=== PATIENT | male | born 2000 | race Caucasian/White ===

== ENCOUNTER 2022-09-29 | Outpatient (REF) | payer MEDICAID, SELFPAY | END 2022-09-29 00:01 | disposition home or self-care (01) | LOC: HO.LNP | PROVIDERS: Visit Provider Emergency Medicine | DX: A60.9 Anogenital herpesviral infection, unspecified (principal) | CPT/HCPCS: 87255 ==

== ENCOUNTER 2022-12-15 18:44 | Outpatient (REF) | payer MEDICAID, SELFPAY ==
[2022-12-16 02:49] LABS: CT PCR NOT DETECTED (Not Detect.); NG PCR NOT DETECTED (Not Detect.)
== END 2022-12-15 18:45 | disposition home or self-care (01) ==
LOC: HO.HHCLNP 18:44
PROVIDERS: Visit Provider Emergency Medicine
DX: N50.89 Other specified disorders of the male genital organs (principal)
CPT/HCPCS: 0353U

== ENCOUNTER 2023-07-07 13:48 | Outpatient (REF) | payer MEDICAID, SELFPAY ==
[2023-07-07 16:15] LABS: MANUAL DIFF FLAG NO
[2023-07-07 16:21] LABS: Basophils Percent Auto 0.9 % (0-2); Eosinophils Percent Auto 0.7 % (0-4); Hematocrit 43.1 % (42.0-52.0); Hemoglobin 14.8 g/dl (14.0-18.0); Imm Gran Abs Auto 0.01 X10*3/uL (0.00-0.03); Imm Gran Pct Auto 0.2 % (0.0-0.4); Lymphocytes Absolute Auto 1.9 X10*3/uL (1.2-4.9); Lymphocytes Percent Auto 42.3 % (20-40); Mean Corpuscular HGB Conc 34.3 g/dl (31.0-36.0); Mean Corpuscular Hemoglobin 31.5 pg (27.0-33.0); Mean Corpuscular Volume 91.7 fL (80.0-98.0); Mean Platelet Volume 11.4 fL (9.4-12.4); Monocytes Absolute Auto 0.6 X10*3/uL (0.1-1.2); Monocytes Percent Auto 13.6 % (2-11); Neutrophils Absolute Auto 1.9 x10*3/uL (2.0-8.3); Neutrophils Percent Auto 42.3 % (45-73); Platelet Count 232 X10*3/uL (160-400); White Blood Count 4.5 X10*3/uL (4.8-10.8)
[2023-07-07 16:28] LABS: Estimated Average Glucose 108 mg/dL; Hemoglobin A1c % 5.4 % (<6.0)
[2023-07-07 16:51] LABS: Alanine Aminotransferase 31 U/L (0-40); Albumin Level 4.7 g/dL (3.5-5.0); Alkaline Phosphatase 112 U/L (39-117); Anion Gap 14 (12-20); Aspartate Amino Transferase 32 U/L (5-37); Bilirubin Direct 0.5 mg/dL (0.0-0.5); Bilirubin Total 1.7 mg/dL (0.0-1.0); Blood Urea Nitrogen 18 mg/dL (9-16); Carbon Dioxide 25 mmol/L (22-29); Chloride 105 mmol/L (96-108); Cholesterol 146 mg/dL (<200); Estimated Glomerular Filt Rate > 60; Glucose Random 89 mg/dL (60-115); HDL Cholesterol 54 mg/dL (>40); LDL Cholesterol Calculated 71 mg/dL (<100); Potassium 4.1 mmol/L (3.3-5.1); Sodium 140 mmol/L (135-145); Triglycerides 108 mg/dL (<150)
[2023-07-07 17:01] LABS: Free T4 (Free Thyroxine) 0.93 ng/dL (0.71-1.85); Thyroid Stimulating Hormone 1.24 uIU/mL (0.32-4.0); Vitamin D 25-OH Total 57.8 ng/mL (>30)
[2023-07-07 18:42] LABS: CT PCR DETECTED (Not Detect.); NG PCR NOT DETECTED (Not Detect.)
[2023-07-08 04:12] LABS: HBS Num1 1.76 mIU/mL (0-7.99); HBsAGNum1 0.34 S/CO (0.00-0.99); HIV AB/AG Nonreactive (Nonreactive); HIV Num 1 0.05 S/CO (0.00-0.99); Hepatitis B Surface Antigen Negative (Negative); ~HepC Num1 0.08 S/CO (0.00-0.79); ~Hepatitis B Surface Antibody NONREACTIVE (Nonreactive); ~Hepatitis C Antibody Nonreactive (Nonreactive)
[2023-07-11 19:38] LABS: RPR Rapid Plasma Reagin NON-REACTIVE (NON-REACTIVE)
== END 2023-07-07 13:49 | disposition home or self-care (01) ==
LOC: HO.HHCL 13:48
PROVIDERS: Visit Provider Family Medicine
DX: Z00.00 Encounter for general adult medical examination without abnormal findings (principal); J45.20 Mild intermittent asthma, uncomplicated; D70.9 Neutropenia, unspecified; M54.2 Cervicalgia; M54.9 Dorsalgia, unspecified; G89.29 Other chronic pain; A60.00 Herpesviral infection of urogenital system, unspecified; R30.0 Dysuria; N50.811 Right testicular pain; N50.812 Left testicular pain; Z13.31 Encounter for screening for depression
CPT/HCPCS: 0353U; 36415; 80048; 80061; 80076; 82306; 83036; 84439; 84443; 85025; 86592; 86695; 86696; 86706; 86803; 87086; 87340; 87389

== ENCOUNTER 2023-07-07 16:29 | Outpatient (REF) | payer MEDICAID, SELFPAY | END 2023-07-07 16:30 | disposition home or self-care (01) | LOC: HO.HHCLNP 16:29 | PROVIDERS: Visit Provider Family Medicine | DX: R30.0 Dysuria (principal) | CPT/HCPCS: 87086 ==

== ENCOUNTER 2023-07-23 21:53 | Emergency (ER) | payer MEDICAID, SELFPAY ==
[2023-07-23 22:04] VITALS: BP 124/66; BP 146/80; PULSE 59; PULSE 76; RESP 16; TEMP 36.7; O2SAT 98; O2SAT 99; BMI 21.3
--- NOTE | 2023-07-23 22:25 | ED.ALCOHOL ---
HPI - Alcohol General Chief Complaint: ETOH/Substance Use Stated Complaint: in [facility] custody,etoh,vomiting Time Seen by Provider: 07/23/23 22:24 Source: patient Mode of arrival: EMS Limitations: no limitations History of Present Illness ED Provider: Dr. Sundar Padilla HPI narrative: 22-year-old male with no significant past medical history who was brought to emergency department by EMS for evaluation of vomiting while he was incarcerated. The patient does not know why he was incarcerated. He does admit to drinking at least 9 nips of Smirnoff vodka. He denies being ill. He denied headache, neck pain, chest pain, abdominal pain, her or chills. He states that he was vomiting and he does have nausea. Related Data Allergies Allergy/AdvReac Type Severity Reaction Status Date / Time No Known Allergies Allergy Verified 07/23/23 22:10 Review of Systems Review of Systems: Yes all other systems are reviewed and are negative PMFSH Social History Social History Unable to assess alcohol history related to: Unknown Smoked in Last 30 Days: No Use of substances other than those prescribed or required for medical reasons: No Do you have a plan to hurt others: No Plan Physical Exam ED Vital Signs: Vital Signs - 24 hr 07/23/23 22:04 07/24/23 00:00 07/24/23 00:15 Temperature 98.1 F 98.0 F 98.0 F Pulse Rate 59 90 90 Respiratory Rate 16 16 16 Blood Pressure 124/66 118/54 L 118/54 L Pulse Oximetry 98 100 100 Oxygen Delivery Method Room Air Room Air Room Air BMI result Body Mass Index 21.3 Vital signs were normal Exam: General: Patient appears intoxicated, he is slurring his words, he apologized several times for being here in the emergency department and being intoxicated Head: Normocephalic, atraumatic EENT: PERRL, Lids normal, sclera normal, conjunctiva normal, nose normal , ears normal, throat without erythema or exudates Neck: Supple, no adenopathy Lung: breath sounds symmetric, no wheezing, rales or rhonchi Chest: symmetric movement, nontender Heart: regular rate and rhythm, normal S1, S2 no murmurs or rubs Abdomen: soft, non-tender, nondistended, normal bowel sounds Back: no vertebral tenderness, no CVAT Extremities: no deformities, moves all extremities symmetrically Neuro: Awake, alert, oriented, normal speech, cranial nerves intact, moves all extremities symmetrically Psych: Pleasant, cooperative Medical Decision Making Medical Decision Making [facility] Narrative: 22-year-old male in police custody with no significant past medical history who was brought to emergency department for evaluation of vomiting while he was in a [facility] cell. Patient does admit to drinking at least 9 nips of Smirnoff vodka. The patient states he does have nausea and he was vomiting. He has no other complaints. He does appear to be acutely intoxicated. Vital signs were normal. Physical examination was unremarkable. Differential diagnosis: ?Includes but is not limited to alcohol intoxication, electrolyte abnormalities, anemia, LFT abnormalities Following evaluation was ordered: CBC, CMP, ethanol level Patient was initially treated with the following: IV insert, normal saline x1 L, Zofran 4 mg IV Course: 00:03 My interpretation patient's laboratory evaluation as follows: Acute intoxication with an ethanol level of 249. CMP revealed an elevated sodium of 147, elevated bilirubin of 1.3, elevated alk-phos of 126 with normal AST and ALT. CBC was normal. The patient is not in police custody and he is requesting to leave. He is able to walk in the emergency department without any difficulty. The patient's sister did come to the emergency department and will take him home. Admission/Observation Consideration of admission/observation: Escalation of care including admission/observation considered Lab Data [facility] Lab Attestation statement: I reviewed the patient's lab results. 07/23/23 22:39 07/23/23 22:39 Labs: Lab Results 07/23/23 Range/Units 22:39 WBC 4.8 (4.8-10.8) X10*3/uL RBC 5.10 (4.60-5.80) X10*6/uL Hgb 16.1 (14.0-18.0) g/dl Hct 45.2 (42.0-52.0) % MCV 88.6 (80.0-98.0) fL MCH 31.6 (27.0-33.0) pg MCHC 35.6 (31.0-36.0) g/dl RDW 11.9 (11.0-16.0) % Plt Count 222 (160-400) X10*3/uL MPV 10.7 (9.4-12.4) fL Immature Gran % (Auto) 0.2 (0.0-0.4) % Neut % (Auto) 54.8 (45-73) % Lymph % (Auto) 36.4 (20-40) % [place] % (Auto) 7.6 (2-11) % Eos % (Auto) 0.2 (0-4) % Baso % (Auto) 0.8 (0-2) % Lymph # (Auto) 1.8 (1.2-4.9) X10*3/uL [place] # (Auto) 0.4 (0.1-1.2) X10*3/uL Eos # (Auto) 0.0 (0.0-0.4) X10*3/uL Baso # (Auto) 0.0 (0.0-0.2) X10*3/uL Abs Immat Gran (auto) 0.01 (0.00-0.03) X10*3/uL Absolute Neuts (auto) 2.7 (2.0-8.3) x10*3/uL Absolute Nucleated RBC 0.000 (0.0-0.012) X10*3/uL Nucleated RBC % (auto) 0.0 (0.0-0.2) /100WBC Sodium 147 H (135-145) mmol/L Potassium 3.9 (3.3-5.1) mmol/L Chloride 108 (96-108) mmol/L Carbon Dioxide 24 (22-29) mmol/L Anion Gap 19 (12-20) BUN 12 (9-16) mg/dL Creatinine 1.10 (0.5-1.4) mg/dL Estim Creat Clear Calc 95.4 Estimated GFR > 60 Random Glucose 96 (60-115) mg/dL Calcium 9.9 (8.4-10.2) mg/dL Total Bilirubin 1.3 H (0.0-1.0) mg/dL AST 24 (5-37) U/L ALT 23 (0-40) U/L Alkaline Phosphatase 126 H (39-117) U/L Total Protein 8.6 H (6.5-8.0) g/dL Albumin 5.0 (3.5-5.0) g/dL Ethyl Alcohol 249 mg/dL Independent Historian Clinical information obtained from an independent historian. History obtained from or confirmed by: Other (Patient's sister) Medications Administered Discontinued Medications Generic Name Dose Route Start Last Admin Trade Name Adam PRN Reason Stop Dose Admin Sodium Chloride 1,000 mls @ 999 mls/hr 07/23/23 22:27 07/23/23 23:59 Ns IV 07/23/23 23:27 Infused .Q1H1M STA Infusion Ondansetron HCl 4 mg 07/23/23 22:27 07/23/23 23:06 Ondansetron Hcl 4 Mg/2 Ml Vial IVPUSH 07/23/23 22:28 4 mg ONCE ONE Administration Discharge Plan Discharge Clinical Impression: Alcoholic intoxication Patient Disposition: Home, Self-Care Instructions: Alcohol Intoxication (ED) Additional Instructions: You were sent to the emergency department by ambulance. You were in [facility] and you were vomiting and you drank too much alcohol. Your blood alcohol level was very high at 249. The legal limit of alcohol intoxication is 80. You should get some help with your alcohol use disorder. Your being discharged home in the care of your sister. You should go home and go to sleep. Follow-up with your doctor in 2 days. Please return to the emergency department if your symptoms get worse or if you develop any symptoms that are concerning to you. Interventions: ED Discharge Assessment Last Done: 07/24/23 00:15
--- NOTE | 2023-07-23 22:35 | MHC.EDTECH ---
Addendum entered by Noemi Pereira 07/23/23 22:38: PT BELONGINGS I LAUNDRY CLOSET NOT LOCKER 11 Original Note: PATIENT BELONGINGS IN LOCKER #11
[2023-07-23 22:44] LABS: MANUAL DIFF FLAG NO
[2023-07-23 22:45] LABS: Basophils Percent Auto 0.8 % (0-2); Eosinophils Percent Auto 0.2 % (0-4); Hematocrit 45.2 % (42.0-52.0); Hemoglobin 16.1 g/dl (14.0-18.0); Imm Gran Abs Auto 0.01 X10*3/uL (0.00-0.03); Imm Gran Pct Auto 0.2 % (0.0-0.4); Lymphocytes Absolute Auto 1.8 X10*3/uL (1.2-4.9); Lymphocytes Percent Auto 36.4 % (20-40); Mean Corpuscular HGB Conc 35.6 g/dl (31.0-36.0); Mean Corpuscular Hemoglobin 31.6 pg (27.0-33.0); Mean Corpuscular Volume 88.6 fL (80.0-98.0); Mean Platelet Volume 10.7 fL (9.4-12.4); Monocytes Absolute Auto 0.4 X10*3/uL (0.1-1.2); Monocytes Percent Auto 7.6 % (2-11); Neutrophils Absolute Auto 2.7 x10*3/uL (2.0-8.3); Neutrophils Percent Auto 54.8 % (45-73); Platelet Count 222 X10*3/uL (160-400); Red Cell Distribution Width 11.9 % (11.0-16.0); White Blood Count 4.8 X10*3/uL (4.8-10.8)
[2023-07-23 22:59] LABS: Alanine Aminotransferase 23 U/L (0-40); Alkaline Phosphatase 126 U/L (39-117); Anion Gap 19 (12-20); Aspartate Amino Transferase 24 U/L (5-37); Bilirubin Total 1.3 mg/dL (0.0-1.0); Blood Urea Nitrogen 12 mg/dL (9-16); Calcium 9.9 mg/dL (8.4-10.2); Carbon Dioxide 24 mmol/L (22-29); Chloride 108 mmol/L (96-108); Creatinine Clr Calc Pharmacy 95.4; Estimated Glomerular Filt Rate > 60; Ethanol 249 mg/dL; Glucose Random 96 mg/dL (60-115); Potassium 3.9 mmol/L (3.3-5.1); Sodium 147 mmol/L (135-145); Total Protein 8.6 g/dL (6.5-8.0)
[2023-07-23] MEDS: ondansetron HCL 4 MG/2 ML VIAL IVPUSH (23:06)
[2023-07-23] MEDS: 0.9 % Sodium Chloride 1,000 ML 999 ML IV (23:06)
[2023-07-24] VITALS: BP 118/54; PULSE 90; RESP 16; TEMP 36.7; O2SAT 100
--- NOTE | 2023-07-24 00:04 | PC.NURSE ---
pt ambulating with steady gait to and from bathroom. 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 MD au aware. pt medically cleared to go home with sister.
[2023-07-24 00:15] VITALS: BP 118/54; PULSE 90; RESP 16; TEMP 36.7; O2SAT 100
== END 2023-07-24 01:32 | disposition home or self-care (01) ==
LOC: HO.ED 07-24 01:35
PROVIDERS: Emergency Provider Emergency Medicine Emergency Medical Services
DX: F10.129 Alcohol abuse with intoxication, unspecified (principal); Y90.8 Blood alcohol level of 240 mg/100 ml or more
CPT/HCPCS: 36415; 80053; 80307; 85025; 96361; 96374; 99284; J2405

== ENCOUNTER 2023-09-06 12:55 | Outpatient (REF) | payer MEDICAID, SELFPAY ==
--- NOTE | ~2023-09-06 | XR_ITS ---
EXAMINATION: XR CERVICAL SPINE XR THORACIC SPINE XR LUMBAR SPINE CLINICAL INFORMATION: Patient states chronic neck and back pain for years. COMPARISON: None available. TECHNIQUE: Three views cervical spine, four views thoracic spine, three views lumbar spine. FINDINGS: CERVICAL SPINE: Limited visualization of C7 due to overlying bony and soft tissue structures. Cervical alignment is maintained. Cervical vertebral body heights and disc spaces are preserved. THORACIC SPINE: Limited visualization due to overlying bony and soft tissue structures. The visualized thoracic vertebral body heights are grossly preserved. Limited visualization of the upper thoracic vertebral bodies due to overlying bone and soft tissue structures. LUMBAR SPINE: Mild rightward curvature of the lumbar spine. There is a transitional lumbosacral vertebral body referred to as L5 for the purposes of this dictation. This vertebral body is sacralized on the right. Correlation with imaging of the entire spine recommended before any procedure/instrumentation to ensure correct numbering of vertebral bodies. Mild degenerative changes and facet arthritis at the lumbosacral junction. Straightening of the normal lumbar lordosis. Mild loss of disc space height at L4-L5. XR/XR lumbar spine 2-3V IMPRESSION: 1. There is a transitional lumbosacral vertebral body referred to as L5 for the purposes of this dictation. This vertebral body is sacralized on the right. Correlation with imaging of the entire spine recommended before any procedure/instrumentation to ensure correct numbering of vertebral bodies. 2. Mild degenerative changes and facet arthritis at the lumbosacral junction. 3. Limited visualization of the cervical and thoracic spine due to overlying bony and soft tissue structures.
--- NOTE | ~2023-09-06 | XR_ITS ---
EXAMINATION: XR CERVICAL SPINE XR THORACIC SPINE XR LUMBAR SPINE CLINICAL INFORMATION: Patient states chronic neck and back pain for years. COMPARISON: None available. TECHNIQUE: Three views cervical spine, four views thoracic spine, three views lumbar spine. FINDINGS: CERVICAL SPINE: Limited visualization of C7 due to overlying bony and soft tissue structures. Cervical alignment is maintained. Cervical vertebral body heights and disc spaces are preserved. THORACIC SPINE: Limited visualization due to overlying bony and soft tissue structures. The visualized thoracic vertebral body heights are grossly preserved. Limited visualization of the upper thoracic vertebral bodies due to overlying bone and soft tissue structures. LUMBAR SPINE: Mild rightward curvature of the lumbar spine. There is a transitional lumbosacral vertebral body referred to as L5 for the purposes of this dictation. This vertebral body is sacralized on the right. Correlation with imaging of the entire spine recommended before any procedure/instrumentation to ensure correct numbering of vertebral bodies. Mild degenerative changes and facet arthritis at the lumbosacral junction. Straightening of the normal lumbar lordosis. Mild loss of disc space height at L4-L5. XR/XR thoracic spine 2V IMPRESSION: 1. There is a transitional lumbosacral vertebral body referred to as L5 for the purposes of this dictation. This vertebral body is sacralized on the right. Correlation with imaging of the entire spine recommended before any procedure/instrumentation to ensure correct numbering of vertebral bodies. 2. Mild degenerative changes and facet arthritis at the lumbosacral junction. 3. Limited visualization of the cervical and thoracic spine due to overlying bony and soft tissue structures.
--- NOTE | ~2023-09-06 | XR_ITS ---
EXAMINATION: XR CERVICAL SPINE XR THORACIC SPINE XR LUMBAR SPINE CLINICAL INFORMATION: Patient states chronic neck and back pain for years. COMPARISON: None available. TECHNIQUE: Three views cervical spine, four views thoracic spine, three views lumbar spine. FINDINGS: CERVICAL SPINE: Limited visualization of C7 due to overlying bony and soft tissue structures. Cervical alignment is maintained. Cervical vertebral body heights and disc spaces are preserved. THORACIC SPINE: Limited visualization due to overlying bony and soft tissue structures. The visualized thoracic vertebral body heights are grossly preserved. Limited visualization of the upper thoracic vertebral bodies due to overlying bone and soft tissue structures. LUMBAR SPINE: Mild rightward curvature of the lumbar spine. There is a transitional lumbosacral vertebral body referred to as L5 for the purposes of this dictation. This vertebral body is sacralized on the right. Correlation with imaging of the entire spine recommended before any procedure/instrumentation to ensure correct numbering of vertebral bodies. Mild degenerative changes and facet arthritis at the lumbosacral junction. Straightening of the normal lumbar lordosis. Mild loss of disc space height at L4-L5. XR/XR cervical spine 3V IMPRESSION: 1. There is a transitional lumbosacral vertebral body referred to as L5 for the purposes of this dictation. This vertebral body is sacralized on the right. Correlation with imaging of the entire spine recommended before any procedure/instrumentation to ensure correct numbering of vertebral bodies. 2. Mild degenerative changes and facet arthritis at the lumbosacral junction. 3. Limited visualization of the cervical and thoracic spine due to overlying bony and soft tissue structures.
== END 2023-09-06 12:56 | disposition home or self-care (01) ==
LOC: HO.HHCX 12:55
PROVIDERS: Visit Provider Family Medicine
DX: M54.2 Cervicalgia (principal); M47.27 Other spondylosis with radiculopathy, lumbosacral region
CPT/HCPCS: 72040; 72070; 72100